=== PATIENT | female | born 1995 | race Two or more races ===

== ENCOUNTER 2016-09-19 20:05 | Inpatient (IN) | payer BC ==
--- NOTE | ~2016-09-19 | PN ---
Unit #: [id number] #: [id number] Patient: YULI NGUYỄN [id number] [place] [address] [id number] I MR#: [id number] NAME: YULI NGUYỄN ROOM: 62 Age: 21 Sex: F Admission Date: 09/19/2016 : 1995 Attending Physician: Roc Hester M.D. Admitting Physician: Roc Hester M.D. Primary Care Physician: Primary Care Physician Edie RAMESH PROGRESS NOTES DATE OF SERVICE: 09/21/2016 LOCATION [facility], [address] [place] [address], room #262, bed #1. SUBJECTIVE This is a 21-year-old female, admitted to the hospital with issues of bipolar disorder, depression. The patient reports tolerating medication changes well in terms of switching over from regular Seroquel to Seroquel XR. Reports sleep is still sound and reports mood is feeling "better today." The patient still has a somewhat constricted blunted affect, but says suicidal ideation is also improving. We discussed findings on her labs that showed a low lithium level, but that appears to be a chronic issue for this individual. She says it is always subtherapeutic, but has been compliant with here. The patient also denied any issues with lower abdominal discomfort or other signs or symptoms of urinary tract infection. Of note, that might be noted on her UA. At this point, the patient has been cooperative in groups and activities. Still isolative to self when not in sessions, but overall following direction and care per report. MENTAL STATUS EXAMINATION General appearance, this is a moderately groomed female, fairly cooperative, responsive to the interview process, improving eye contact. Speech is clear and coherent if brief. Mood is "better," but still depressed with a blunted affect. Thought process and content are grossly organized and linear. Less focus with SI today. No plan was hopeless. No HI. No psychosis. The patient's memory is grossly intact. Associations are normal. Alert and oriented x4. Cognitive function seems to be at baseline. Insight and judgment are improving. RECOMMENDATIONS 1. Continue the patient's admission for ongoing issues of bipolar depression severe and the patient is tolerating medication changes well, but needs further stabilization prior to discharge given suicidal ideations upon admission. They are improving. The patient's affect is still one of extreme restriction. 2. We will encourage groups and activities as well as ambulation and socialization. 3. Continue to monitor regularly with likely disposition tomorrow or the day after depending on the patient's progress. Unit #: [id number] #: [id number] Patient: YULI NGUYỄN Dictated by... Miguel Ángel Mckeon/davin TD: 09/23/2016 08:29 JOB #: [id number] [facility] PROGRESS NOTES Page 1 of 1 X Roc Hester MD X PROGRESS NOTE
--- NOTE | ~2016-09-19 | CO ---
Unit #: [id number] #: [id number] Patient: YULI NGUYỄN [id number] [place] [address] [id number] MR#: [id number] NAME: YULI NGUYỄN ROOM: [facility] Age: 21 Sex: F Admission Date: 09/19/2016 : 1995 Attending Physician: Roc Hester M.D. Primary Care Physician: Primary Care Physician No CONSULTATION REPORT ORDERING PROVIDER Dr. Hester. REASON FOR CONSULTATION Abnormal UA. SUBJECTIVE The patient denies any signs or symptoms. There is no dysuria, hematuria, or urinary frequency. OBJECTIVE The patient's examination was unremarkable; however, her urinalysis shows 3+ leukocyte esterase and 1+ bacteria. ASSESSMENT Abnormal urinalysis. PLAN Plan is to get a culture and sensitivity. Dictated by... Nithya Dejesus A.P.R.N. for Miguel Ángel Patel/davin TD: 09/21/2016 19:15 JOB #: [id number] CONSULTATION REPORT Page 1 of 1 X NITHYA DEJESUS APRN CONSULTATION REPORT
--- NOTE | ~2016-09-19 | HP ---
Unit #: [id number] #: [id number] Patient: YULI NGUYỄN [id number] [facility] [address] [place] [address] [id number] I MR#: [id number] NAME: YULI NGUYỄN ROOM: [facility] Age: 21 Sex: F Admission Date: 09/19/2016 : 1995 Attending Physician: Jamie Mcclellan M.D. Admitting Physician: Jamie Mcclellan M.D. Primary Care Physician: Primary Care Physician No HISTORY AND PHYSICAL HISTORY OF PRESENT ILLNESS Yuli is a 21-year-old female admitted on 09/19/[address] [place] [address] for suicidal ideation with a plan to overdose on medication. PAST MEDICAL HISTORY None. PAST SURGICAL HISTORY None documented. ALLERGIES No known drug allergies. 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 No tobacco, alcohol or illegal drug use. FAMILY HISTORY Noncontributory. REVIEW OF SYSTEMS CONSTITUTIONAL: No fever or chills. HEENT: Denies any sore throat, ear pain or runny nose. CARDIOVASCULAR: Denies chest pain, irregular heart rhythm or palpitations. CHEST: Denies shortness of breath or cough. No hemoptysis. GASTROINTESTINAL: Denies nausea, vomiting, diarrhea or chronic constipation. ENDOCRINE: Denies history of increased thirst or urination. No recent significant weight loss or gain. GENITOURINARY: Denies dysuria, frequency, or hematuria. SKIN: Denies any rashes. HEMATOLOGIC: Denies history of increased bleeding or bruising. MUSCULOSKELETAL: Denies any hot, swollen joints. No generalized muscle pain. NEUROLOGIC: Denies problems with vision or speech. No frequent, severe headaches. No numbness, tingling or weakness in any extremities. Denies loss of bladder or bowel control. CURRENT MEDICATIONS 1. Seroquel. 2. [place]. PHYSICAL EXAMINATION Unit #: [id number] #: [id number] Patient: YULI NGUYỄN GENERAL: Alert, oriented, in no acute distress. VITAL SIGNS: Blood pressure 123/71, heart rate 68, respirations 18, temperature 98.4. HEIGHT: 5 feet 3. WEIGHT: 153 pounds. SKIN: Warm and dry without rash or lesion. HEENT: Normocephalic. TMs not viewed. Oral and nasal passages clear. Conjunctivae clear. PERRLA. EOMs intact. NECK: Supple without lymphadenopathy or thyromegaly. HEART: Regular rate and rhythm without murmur. LUNGS: Clear. ABDOMEN: Soft, nontender, without masses or hepatosplenomegaly. : Not done. EXTREMITIES: No evidence of cyanosis, clubbing or edema. Moves all without focal deficit. NEUROLOGICAL: Grossly within normal limits. Cranial Nerves: II: Visual khalil are intact. III, IV AND : Extraocular movements are intact. Pupils are equal, round and reactive to light. V: Facial sensation is grossly normal. VII: Facial movements and expression are normal. VIII: Auditory acuity grossly intact. IX, X: Uvula is midline. Phonation is normal. XI: Patient shrugs shoulders and turns head normally. XII: Tongue protrudes in the midline. Sensory and Motor Function: Sensory and motor sensation is grossly normal. Motor: moves all extremities well. Coordination: Gait is normal. Deep Tendon Reflexes: Intact. IMPRESSION Psychiatric admission. RECOMMENDATIONS PSYCHIATRIC: Per psychiatrist. MEDICAL: No contraindications to participate in facility's activities. MEDICAL PROGNOSIS Good. MEDICAL CONDITION Stable. Dictated by... Fredi Lara/maynor TD: 09/20/2016 18:03 JOB #: [id number] Unit #: [id number] #: [id number] Patient: YULI NGUYỄN HISTORY AND PHYSICAL Page 1 of 1 X MARCELO HENNESSY APRN X HISTORY AND PHYSICAL
--- NOTE | ~2016-09-19 | DS ---
Unit #: [id number] #: [id number] Patient: YULI NGUYỄN [id number] [place] [address] [id number] I MR#: [id number] NAME: YULI NGUYỄN ROOM: [facility] Age: 21 Sex: F Admission Date: 09/19/2016 : 1995 Discharge Date: 09/22/2016 Attending Physician: Roc Hester M.D. Primary Care Physician: Primary Care Physician No DISCHARGE SUMMARY REASON FOR ADMISSION Suicidal ideation, depressed mood. DIAGNOSTIC STUDIES Pertinent laboratory data, included a urinalysis that showed positive for leukocyte esterase and bacteria in urine. The patient was seen by internal medicine by nurse practitioner but changes made from their standpoint at the time of discharge. The patient had a CMP that was grossly within normal parameters without exception. TSH normal at 2.88. Free T4 normal at 0.76. [place] level noted to be at 0.3 which is in keeping with her history. Beta HCG negative. CBC that was grossly with normal parameters. Tox screen that was negative upon admission with no other overt tests performed. HOSPITAL COURSE The patient was admitted for safety and stabilization for depressed mood with suicidal ideation. the patient has a history of bipolar disorder but depressed mood with some concern about verification of this diagnosis by history in the chart; however, she does a current issues with medication changes causing destabilization with her mood. The patient had been on Abilify in addition to lithium during her last admission here and it did well on discharge, unfortunately, she had been noting increasingly worsening side effects with it and had been discontinued in favor of Seroquel about a month ago, unfortunately since then her mood has rapidly taken a down turn to the point where she was having suicidal ideation, again and she was referred to the hospital for care. The patient was maintained on her lithium dose from admission and had her Seroquel changed to the XR version 50 mg in the evening. The patient reported doing much better on it and had a much more positive effect on her mood in terms of anti-depression and anxiety benefit. Her suicidal ideation rapidly resolved. The patient was instructed to go to groups and activities and she did so even though she was initially (1) to herself when she wasn't in a session. At the time of discharge, the patient had been seen, as noted above, by the nurse practitioner for evaluation of her urinary tract infection, disposition was per their recommendation on that matter. Overall, the patient has shown good benefit with plan to follow up with her outpatient psychiatrist, Dr. Holguin at [facility] on next scheduled appointment on the 02 of October. At the time of discharge the patient was showing no acute side effects of the medication. Her Unit #: [id number] #: [id number] Patient: YULI NGUYỄN affect had improved. She was no longer complaining about any severe depression or anxiety. Her sleep was stable and no SI was present. It was felt, overall, the patient had reached maximum benefit from admission and was appropriate for stepdown and discharge home with the family which she was in agreement. DISCHARGE DIAGNOSES Ellis I Bipolar disorder, most recent episode, depressed, severe without psychotic features. Ellis II Ellis III Ellis IV Ellis V DISCHARGE FOLLOWUP CARE Will be through [facility] outpatient psychiatric group with Dr. Holguin as soon as is scheduled. Plan for the patient to go home with the family today and be there for monitoring for safety purposes. CONDITION AT DISCHARGE Condition has improved. PROGNOSIS Prognosis is good considering the patient has good positive response with medications and outpatient care plan in place. DIET AND ACTIVITY Diet is regular. Activity is as tolerated. DISCHARGE VITAL SIGNS Available at this time. Dictated by... Roc Hester M.D. ANUJA/stone TD: 09/22/2016 12:40 JOB #: [id number] DISCHARGE SUMMARY Page 1 of 1 X Roc Hester MD X DISCHARGE SUMMARY
--- NOTE | ~2016-09-19 | PA ---
Unit #: [id number] #: [id number] Patient: YULI NGUYỄN 110891 [place] [address] [id number] I MR#: [id number] NAME: YULI NGUYỄN ROOM: P262 Age: 21 Sex: F Admission Date: 09/19/2016 : 1995 Date of Assessment: Attending Physician: Jamie Mcclellan M.D. Admitting Physician: Jamie Mcclellan M.D. PSYCHIATRIC ASSESSMENT DATE OF SERVICE 09/20/2016. LOCATION [facility], [address] [place] [address], room #262, bed #1. INFORMANTS The patient and chart, both are reliable. CHIEF COMPLAINT Resurgence of suicidal ideations. HISTORY OF PRESENTING ILLNESS This is a 21-year-old female, admitted at the referral from her therapist at [facility] for resurgence of suicidal ideations. The patient was just discharged in the end of June for similar situations from here under the care of Dr. Mcclellan in the followup care in the IOP program. The patient reports now that over the last couple of days she has noticed a rebounding issue with her suicidal ideation. In fact, her depression has progressively gotten worse in the past month as she was stopped on Abilify and switched over to Seroquel. Her sleep did improve on it and side effects have been much less of an issue compared with Abilify, but her mood has notably deteriorated for the patient. No overt stressors were noted beyond the typical things of school and home life, especially with her brother who is now out of detention, is back living with them. Overall, the patient seems very blunted in her affect, moderate eye contact at best, though considering to have suicidal ideation. Notes issues with isolation, negativity, anhedonia, and motivation with energy issues all have been noted since the last month. The patient is continuing to voice vague SI now with no plan. The patient seems isolative to self and room per staff. The patient has still been compliant with all of her additional medications despite changes in her mood. The patient has also been going to her outpatient therapy services as well as other programs, but has not seen any improvement. Family remains supportive. PAST PSYCHIATRIC HISTORY As noted above. The patient was seen by nurse practitioner at [facility] for medications as well as a therapist there. No actual history of suicide attempts, but suicidal ideation continues to be an issue. The patient denies any issue with chemical dependency now or in the past or issues with any psychosis. PAST MEDICAL HISTORY Unit #: [id number] #: [id number] Patient: YULI NGUYỄN Noncontributory, nothing acute or chronic. MEDICATION HISTORY Includes lithium 600 mg at night and Seroquel 50 mg at night. ALLERGIES None reported, however, the patient has a very negative reaction to Prozac in the past, which caused suicidal ideation. It should be noted that is an adverse issue. SUBSTANCE ABUSE HISTORY Nothing acute or chronic per the patient and chart. FAMILY HISTORY Notable for brother who has some chemical dependency issues in terms of alcohol, beyond that noncontributory. 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 MENTAL STATUS EXAMINATION General appearance; this is a moderately groomed female, fairly pleasant, cooperative, responsive to the interview process, moderate eye contact at best though. Speech was clear and coherent, but brief. Mood was depressed with a blunted affect. Thought process and content were grossly organized and linear. No overt evidence of psychosis. The patient is still reporting vague SI, but no plan today. No HI. The patient's memory is grossly intact. Associations are normal. Alert and oriented x4. Cognitive function is at baseline. Insight and judgment are limited. ASSETS Include supportive family and in place outpatient psych care network. LIABILITIES Include recent medication changes, addition of stressors at home. ADMITTING DIAGNOSIS Bipolar disorder, depressed, severe without psychotic features. PSYCHIATRIC PLAN Psychiatric plan is to continue the patient's admission for safety and stabilization for ongoing depressive state, suicidal ideation, and overall deterioration of situation. Treatment goals are same in terms of resolution of these issues in a timely and appropriate manner. We will continue the patient on lithium for now and we will change Seroquel to Seroquel XR 200 mg at night for better mood augmentation approach. This was explained to the patient, who agreed. Discharge planning will most likely involve return to either [facility] and/or to [facility]'s outpatient program as soon as can be scheduled. ESTIMATED LENGTH OF STAY 3 to 5 days depending on the patient's progress and response to treatment. Dictated by... Unit #: [id number] #: [id number] Patient: YULI NGUYỄN Miguel Ángel Mckeon/davin TD: 09/20/2016 11:39 JOB #: [id number] PSYCHIATRIC ASSESSMENT Page 1 of 1 X Roc Hester MD PSYCHIATRIC ASSESSMENT
[2016-09-20 11:48] LABS: BASOPHIL% 0.5 % (0-2.5); EOSINOPHIL# 0.2 X10e3 (0-0.7); EOSINOPHIL% 2.8 % (0.0-7.0); HEMATOCRIT 43.9 % (35.0-45.0); HEMOGLOBIN 14.6 gm/dL (12.0-16.0); LYMPHOCYTE# 2.1 X10e3 (1.0-3.5); LYMPHOCYTE% 31.8 % (17.0-45.0); MEAN CELL VOLUME 92.3 FL (83-96); MEAN CORPUSCULAR HEMOGLOBIN 30.6 PG (28-34); MEAN CORPUSCULAR HGB CONC 33.2 g/dL (30-36); MONOCYTE# 0.5 X10e3 (0-1.0); MONOCYTE% 6.9 % (3.0-12.0); NEUTROPHIL# 3.8 X10e3 (1.5-7.1); PLATELET COUNT 250 X10e3 (140-420); RED BLOOD COUNT 4.75 X10e (3.90-5.30); RED CELL DISTRIBUTION WIDTH 12.6 % (11.0-15.5); WHITE BLOOD COUNT 6.5 X10e3 (4.0-10.5)
[2016-09-20 12:02] LABS: THYROID STIMULATING HORMONE 2.88 uIU/ml (0.34-5.60)
[2016-09-20 12:05] LABS: DIFF IND NO
[2016-09-20 12:09] LABS: ALBUMIN SERUM 4.2 g/dL (3.5-5.0); BILIRUBIN,TOTAL 0.9 mg/dL (0.2-2.0); BUN/CREATININE RATIO 16.66; CALCIUM SERUM 9.1 mg/dL (8.4-10.2); CREATININE SERUM 0.6 mg/dL (0.6-1.4); GLOM FILT RATE Estimated 131.2 mL/min (>60); POTASSIUM 4.6 mmol/L (3.5-5.1); PROTEIN TOTAL SERUM 6.7 g/dL (6.0-8.3)
[2016-09-20 12:11] LABS: FREE THYROXIN (T4) 0.76 ng/dL (0.58-1.64)
[2016-09-20 12:12] LABS: URINE APPEARANCE CLOUDY; URINE BILIRUBIN NEG (NEG); URINE BLOOD NEG (NEG); URINE COLOR YELLOW; URINE GLUCOSE NEG (NEG); URINE KETONE NEG (NEG); URINE LEUKOCYTE ESTERASE 3+ (NEG); URINE NITRATE NEG (NEG); URINE PROTEIN NEG (NEG); URINE SPECIFIC GRAVITY 1.018 (1.003-1.035); URINE UROBILINOGEN 0.2 MG/DL (NEG)
[2016-09-20 12:17] LABS: URINE BACTERIA AUWI 1+ (NEGATIVE); URINE SQUAMOUS EPITHELIAL CELL MOD /[HPF]; UWBCS1 AUWI 50-100 (0-5)
[2016-09-20 12:41] LABS: AMPHETAMINE NEG (NEG); BARBITURATES NEG (NEG); BENZODIAZEPINES NEG (NEG); COCAINE NEG (NEG); MARIJUANA NEG (NEG); OPIATES NEG (NEG); TRICYCLIC ANTIDEPRESSANTS NEG (NEG); U METHADONE NEG (NEG)
== END 2016-09-22 14:55 | disposition home or self-care (01) | DRG 885 ==
LOC: P2L 20:05
PROVIDERS: Psychiatry & Neurology Psychiatry
DX: F31.4 Bipolar disorder, current episode depressed, severe, without psychotic features (principal); R45.851 Suicidal ideations; R82.90 Unspecified abnormal findings in urine
CPT/HCPCS: 80053; 80178; 80307; 81003; 84439; 84443; 84703; 85025